=== PATIENT | male | born 1960 | race Caucasian/White ===

== ENCOUNTER 2025-07-15 09:18 | Emergency (ER) | payer MEDICARE, OTHER ==
[~2025-07-15] VITALS: Ht 162.6 cm; Wt 81.8 kg
[2025-07-15 09:25] VITALS: TEMP 98
[2025-07-15 09:36] VITALS: BP 162/84; PULSE 88; RESP 16; O2SAT 99
[2025-07-15] MEDS ORDERED: OXYC10TA92 PO (09:54)
[2025-07-15] MEDS ORDERED: GABA-1181 PO (09:54)
== END 2025-07-15 10:16 | disposition home or self-care (01) ==
LOC: EMS 09:18
DX: R52 Pain, unspecified (principal); E78.00 Pure hypercholesterolemia, unspecified; I10 Essential (primary) hypertension; Z79.899 Other long term (current) drug therapy; Z76.0 Encounter for issue of repeat prescription
CPT/HCPCS: 99283; Z7502